=== PATIENT | female | born 1985 | race Caucasian/White ===

== ENCOUNTER 2019-11-19 11:13 | Observation (INO) | payer BC, MEDICAID, SELFPAY ==
--- NOTE | ~2019-11-19 | US_ITS ---
US OB limited DATE: 11/19/2019 12:36 INDICATION: Vaginal bleeding. Check placenta. TECHNIQUE: Real-time imaging and Doppler analysis COMPARISON: None FINDINGS: Live reilly intrauterine gestation, fetus in vertex presentation, longitudinal lie. Feta l heart rate of 161 bpm. Anterior placenta, lower margin almost 4 cm above the internal os. No retroplacental hemorrhage is ev ident. Normal amount of amniotic fluid by subjective assessment. IMPRESSION: No significant abnormality Reviewed, dictated and finalized at Location [facility]. Reviewed, dictated and finalized at location B. IMPRESSION: No significant abnormality
[2019-11-19 11:29] VITALS: BMI 29.4
[2019-11-19 12:05] VITALS: BP 129/74; PULSE 78; TEMP 36.6
--- NOTE | 2019-11-19 12:49 | OBADM ---
This patient, Carrie Palmer, admitted to the OB room OB Post 116 for observation. Patient/family oriented to hospital policies and general routines including ID bracelet, bed and alarms, visiting hours, pain management, procedures, bathroom and other care routines, personal items, smoking policy, room service/diet, and visiting hours. Patient/Family are encouraged to report perceived risks to care and to ask questions if they do not understand what they are told or what they should do.
--- NOTE | 2019-11-22 08:37 | PM.OBTRLD ---
OB - Triage/Final Diagnosis Visit Information Comments/Additional reasons for admission: cramping
== END 2019-11-19 13:05 | disposition home or self-care (01) ==
PROVIDERS: Admitting Provider Obstetrics & Gynecology Gynecology; PCP Family Medicine; Visit Provider Obstetrics & Gynecology Gynecology
DX: O26.892 Other specified pregnancy related conditions, second trimester (principal); R10.9 Unspecified abdominal pain; Z3A.18 18 weeks gestation of pregnancy
CPT/HCPCS: 76815; G0378; G0379

== ENCOUNTER 2020-03-15 10:28 | Outpatient (CLI) | payer MEDICAID, SELFPAY ==
--- NOTE | ~2020-03-15 | US_ITS ---
EXAMINATION: US OB follow up DATE: 03/15/2020 14:32 INDICATION: Size less than dates. Third trimester. TECHNIQUE: Real-time ultrasound of the pelvis was performed. COMPARISON: Ultrasound 11/19/19 FINDINGS: There is a single living fetus in vertex presentation. The placenta is anterior. heart rate is 134 beats per minute (bpm). The amniotic fluid index is 12.3 cm, which is normal. The following biometric data were obtained: Biparietal diameter (BPD): 8.5 cm; head circumference (HC): 33.2 cm; abdominal circumference (AC): 31 .3 cm; femur length (FL): 6.8 cm. These measurements are concordant. Estimated weight is 2635 g +/- 395 g, which correlates with 62nd percentile when 04/21/20 is used as estimated date of delivery. As single measurements, these parameters are each equal to the following estimated gestational ages: BPD: 34 weeks 2 days. HC: 37 weeks 6 days. AC: 35 weeks 1 days. FL: 34 weeks 6 days. estimated gestational age based solely on measurements from this exam is 35 weeks 4 days +/- 2 weeks 3 days. IMPRESSION: 1. Single living fetus in vertex presentation. 2. Estimated weight is 2635 g +/- 395 g, which correlates with 62nd percentile when 04/21/20 is used as estimated date of delivery. Reviewed, dictated and finalized at location A. RANCE AUDITOR IMPRESSION: 1. Single living fetus in vertex presentation. 2. Estimated weight is 2635 g +/- 395 g, which correlates with 62nd perc entile when 04/21/20 is used as estimated date of delivery.
== END 2020-03-15 10:29 | disposition home or self-care (01) ==
LOC: ANHIMG 10:33
PROVIDERS: PCP Family Medicine; Visit Provider Obstetrics & Gynecology Gynecology
DX: O36.5933 Maternal care for other known or suspected poor fetal growth, third trimester, fetus 3 (principal); Z3A.35 35 weeks gestation of pregnancy
CPT/HCPCS: 76816

== ENCOUNTER 2020-04-01 10:06 | Outpatient (RCR) | payer OTHER, SELFPAY | END 2020-04-16 07:37 | disposition home or self-care (01) | LOC: ANHOBOP 10:06 | PROVIDERS: PCP Family Medicine; Visit Provider Obstetrics & Gynecology | DX: O36.8130 Decreased fetal movements, third trimester, not applicable or unspecified (principal); Z3A.40 40 weeks gestation of pregnancy | CPT/HCPCS: 59025 ==

== ENCOUNTER 2020-04-14 06:35 | Inpatient (IN) | payer OTHER, SELFPAY ==
[2020-04-14] VITALS (165 sets, daily range): BP systolic 97–131; BP diastolic 47–86; PULSE 67–104; RESP 16; TEMP 36.1–36.9; O2SAT 98–100; BMI 29.4
[2020-04-14 07:09] LABS: Basophils Percent Auto 0.3 % (0.2-1.2); Eosinophils Absolute Auto 0.2 K/mm3 (0-0.3); Eosinophils Percent Auto 1.4 % (0-4.4); Hematocrit 32.2 % (37.0-47.0); Hemoglobin 11.3 g/dL (12.0-15.0); Immature Granulocyte Absolute 0.09 K/mm3 (0.00-0.031); Immature Granulocyte Percent A 0.6 % (0-0.5); Lymphocytes Absolute Auto 2.03 K/mm3 (0.9-3.2); Lymphocytes Percent Auto 14.4 % (18.3-44.2); Mean Corpuscular HGB Conc 35.1 g/dl (32-36); Mean Corpuscular Volume 91.2 fl (80-100); Monocytes Absolute Auto 1.5 K/mm3 (0.1-0.6); Monocytes Percent Auto 10.4 % (2.6-8.5); Neutrophils Absolute Auto 10.3 K/mm3 (1.3-6.7); Neutrophils Percent Auto 72.9 % (45.5-73.1); Platelet Count Result 260 k/mm3 (150-375); Red Blood Count 3.53 M/mm3 (4.2-5.4); Red Cell Distribution Width 13.7 % (11.5-14.5); White Blood Count 14.1 K/mm3 (4.5-10.0)
[2020-04-14 07:18] LABS: Anisocytosis 1+ (NORMAL); Platelet Estimate Adequate (Adequate)
[2020-04-14 07:19] LABS: Microcytosis 1+ (NORMAL)
[2020-04-14 07:21] LABS: Alanine Aminotransferase 19 U/L (4-35); Albumin Level 3.6 g/dL (3.5-5.1); Alkaline Phosphatase 193 U/L (38-126); Anion Gap 6 mmol/L (8-16); Aspartate Amino Transferase 20 U/L (14-36); Bilirubin,Total 0.6 mg/dL (0.2-1.3); Blood Urea Nitrogen 8 mg/dL (7-17); Carbon Dioxide 19 mmol/L (22-30); Chloride 108 mmol/L (98-107); Estimated Glomerular Filt Rate > 60; Glucose 86 mg/dL (65-105); Potassium 3.6 mmol/L (3.4-5.0); Sodium 133 mmol/L (137-145)
[2020-04-14] MEDS: LACTATED RINGERS 1,000 ML 125 ML IV CONT ×2 (07:43→17:58)
[2020-04-14] MEDS: OXYTOCIN 30 UNITS/NS 500 ML 30 UNITS/500 ML BAG IV CONT (07:44)
--- NOTE | 2020-04-14 07:44 | WPDOBADMIT ---
Obstetrics - Admit Note Admission Note: record reviewed. No pertinent additions to the history and/or any subsequent changes in the physical findings that are not consistent with the expected course of the were found. Additions to the history and/or subsequent changes in the physical findings follow. None. Here for MIL. Cervix /-2 AROM with clear. FHTs reactive.
--- NOTE | 2020-04-14 08:07 | WPDANESEPP ---
Anes - Eval Pre Procedure Procedure: labor epidural Date/Time: 04/14/20 08:07 Surgeon: Carlos Alberto Pre Op Diagnosis: IOL Patient Data Age: 34 Gender: F Height: Weight: Last Vital Signs Temp 36.1 C L 04/14/20 07:00 Pulse 76 04/14/20 08:00 BP 118/73 04/14/20 08:00 Pulse Ox 99 04/14/20 07:05 Allergies Allergy/AdvReac Type Severity Reaction Status Date / Time Sulfa (Sulfonamide Allergy Hives Verified 04/14/20 07:47 Antibiotics) Home Medications Medication Instructions Recorded Confirmed Type PNV cmb#95-ferrous fumarate-FA 1 tablet PO DAILY 03/23/20 04/14/20 History [] ergocalciferol (vitamin D2) 1,250 mcg PO WEEKLY 03/23/20 04/14/20 History [Vitamin D2] Laboratory Tests 04/14/20 04/14/20 04/14/20 07:02 07:02 07:02 WBC 14.1 K/mm3 H K/mm3 (4.5-10.0) RBC 3.53 M/mm3 L M/mm3 (4.2-5.4) Hgb 11.3 g/dL L g/dL (12.0-15.0) Hct 32.2 % L % (37.0-47.0) MCV 91.2 fl fl (80-100) MCH 32.0 pg pg (26-34) MCHC 35.1 g/dl g/dl (32-36) RDW 13.7 % % (11.5-14.5) Plt Count 260 k/mm3 k/mm3 (150-375) MPV 11.0 fl H fl (7.4-10.4) Immature Gran % (Auto) 0.6 % H % (0-0.5) Neut % (Auto) 72.9 % % (45.5-73.1) Lymph % (Auto) 14.4 % L % (18.3-44.2) [place] % (Auto) 10.4 % H % (2.6-8.5) Eos % (Auto) 1.4 % % (0-4.4) Baso % (Auto) 0.3 % % (0.2-1.2) Lymph # (Auto) 2.03 K/mm3 K/mm3 (0.9-3.2) [place] # (Auto) 1.5 K/mm3 H K/mm3 (0.1-0.6) Eos # (Auto) 0.2 K/mm3 K/mm3 (0-0.3) Baso # (Auto) 0.0 K/mm3 K/mm3 (0.0-0.1) Abs Immat Gran (auto) 0.09 K/mm3 H K/mm3 (0.00-0.031) Absolute Neuts (auto) 10.3 K/mm3 H K/mm3 (1.3-6.7) Absolute Nucleated RBC 0.0 K/mm3 K/mm3 (0.0-0.012) Nucleated RBC % 0.0 % % (0.0-0.2) Platelet Estimate Adequate (Adequate) Anisocytosis 1+ (NORMAL) Microcytosis 1+ (NORMAL) Sodium 133 mmol/L L mmol/L (137-145) Potassium 3.6 mmol/L mmol/L (3.4-5.0) Chloride 108 mmol/L H mmol/L (98-107) Carbon Dioxide 19 mmol/L L mmol/L (22-30) Anion Gap 6 mmol/L L mmol/L (8-16) BUN 8 mg/dL mg/dL (7-17) Creatinine 0.50 mg/dL L mg/dL (0.7-1.0) Estim Creat Clear Calc Not Reportable Estimated GFR > 60 (59 - ) Glucose 86 mg/dL mg/dL (65-105) Calcium 9.0 mg/dL mg/dL (8.4-10.2) Total Bilirubin 0.6 mg/dL mg/dL (0.2-1.3) AST 20 U/L U/L (14-36) ALT 19 U/L U/L (4-35) Alkaline Phosphatase 193 U/L H U/L (38-126) Total Protein 7.0 g/dL g/dL (6.3-8.2) Albumin 3.6 g/dL g/dL (3.5-5.1) RPR Pending Patient hx anesthesia problems: none Family hx anesthesia problems: none [facility] Family History Family History Other No pertinent family history Social History Social History Smoking packs per day: 1 Smoking cigarettes per day: 20.0 Smoking status: Current every day smoker Second hand tobacco smoke exposure: Yes Substance use: never Gender identity (if verbalized by the patient): Female Spiritual care concerns: No Comments past h/o HTN Exam Day of Procedure 04/14/20 08:07 Patient weight: obese Heart: regular rate and rhythm Lungs: normal air movement Airway: Mallampati scale class II Neurological: alert and oriented
--- NOTE | 2020-04-14 08:16 | LDADM ---
This patient, Carrie Palmer, was admitted to Labor/Delivery/Recovery 105 on 04/14/20 at 06:35. Plans for labor, pain management and were discussed with patient. Patient/family oriented to hospital policies and general routines including ID bracelet, bed and alarms, visiting hours, pain management, procedures, bathroom and other care routines, personal items, smoking policy, room service/diet and guest tray routines, infant security routines, call light, and visiting hours. Patient/Family are encouraged to report perceived risks to care and to ask questions if they do not understand what they are told or what they should do. See OBIX for further documentation.
[2020-04-14 10:49] LABS: Rapid Plasma Reagin Non-Reactive (NonReactive)
--- NOTE | 2020-04-14 18:52 | PM.OBPRVD ---
OB - Delivery Note Procedure Delivery date: 04/14/20 Procedure: events: Labor Induction Intrapartal events: None Induction method: AROM and per pitocin protocol Delivery monitor: external FHT and external uterine Route of delivery: Laceration Description: Vaginal - 1st Degree Delivery repair: vicryl (3-0 vicryl) Specimen: No Quantitative Blood Loss (ml): 100 Anesthesia type: Epidural Disposition: floor [place] Baby Date of : 04/14/20 Weeks of gestation at delivery: 39 Infant gender: Male Weight (pounds): 6 Weight (ounces): 15 presentation: vertex position: Left Occiput Anterior Placenta delivery description: Spontaneous cord vessel description: 3 Vessels and Nuchal Cord score one minute: 8 score five minutes: 9
--- NOTE | 2020-04-14 18:53 | PM.OBDSVD ---
DS: Admitting Diagnosis Admitting Diagnosis Admitting Diagnosis: IUP 39 wk MIL DS: Discharge Diagnosis Discharge Diagnosis (1) (normal spontaneous vaginal delivery): Code(s): O80 - Encounter for full-term uncomplicated delivery Status: Acute (2) 39 weeks gestation of : Code(s): Z3A.39 - 39 weeks gestation of Status: Acute OB - DS: Summary OB Procedures : Ultrasound OB Procedures Intrapartum: Spontaneous Vag Delivery OB Procedures: : None Peripartum Data Delivery Method: Natural Vaginal Laceration Description: Vaginal - 1st Degree complications: none Status at Discharge Functional status at discharge: independent ambulation Overall status at discharge: patient is progressing back to baseline Time Spent with Patient Time attestation: Total time spent providing and/or coordinating discharge services: DS: Data Data Completed and Pending Labs on day of discharge: Labs from last 24 hours 04/14/20 04/14/20 04/14/20 07:02 07:02 07:02 WBC RBC Hgb Hct MCV MCH MCHC RDW Plt Count MPV Immature Gran % (Auto) Neut % (Auto) Lymph % (Auto) [place] % (Auto) Eos % (Auto) Baso % (Auto) Lymph # (Auto) [place] # (Auto) Eos # (Auto) Baso # (Auto) Abs Immat Gran (auto) Absolute Neuts (auto) Absolute Nucleated RBC Nucleated RBC % Platelet Estimate Anisocytosis Microcytosis Sodium 133 L Potassium 3.6 Chloride 108 H Carbon Dioxide 19 L Anion Gap 6 L BUN 8 Creatinine 0.50 L Estim Creat Clear Calc Not Reportable Estimated GFR > 60 Glucose 86 Calcium 9.0 Total Bilirubin 0.6 AST 20 ALT 19 Alkaline Phosphatase 193 H Total Protein 7.0 Albumin 3.6 RPR Non-reactive Blood Type O Positive Antibody Screen Negative 04/14/20 07:02 WBC 14.1 H RBC 3.53 L Hgb 11.3 L Hct 32.2 L MCV 91.2 MCH 32.0 MCHC 35.1 RDW 13.7 Plt Count 260 MPV 11.0 H Immature Gran % (Auto) 0.6 H Neut % (Auto) 72.9 Lymph % (Auto) 14.4 L [place] % (Auto) 10.4 H Eos % (Auto) 1.4 Baso % (Auto) 0.3 Lymph # (Auto) 2.03 [place] # (Auto) 1.5 H Eos # (Auto) 0.2 Baso # (Auto) 0.0 Abs Immat Gran (auto) 0.09 H Absolute Neuts (auto) 10.3 H Absolute Nucleated RBC 0.0 Nucleated RBC % 0.0 Platelet Estimate Adequate Anisocytosis 1+ Microcytosis 1+ Sodium Potassium Chloride Carbon Dioxide Anion Gap BUN Creatinine Estim Creat Clear Calc Estimated GFR Glucose Calcium Total Bilirubin AST ALT Alkaline Phosphatase Total Protein Albumin RPR Blood Type Antibody Screen Discharge Plan Discharge Attending physician on discharge: Connie Carcamo Discharging Clinician: Connie Carcamo Anticipated Discharge Date/Time: 04/16/20 18:54 Patient Disposition: Home, Self-Care Activity: may shower and pelvic rest Diet: regular Patient Instructions: Antibiotic Form, How to Stop Smoking (DC) Stand Alone Forms: General Discharge Information Follow-up/Referrals: Connie Carcamo MD [Physician] - 6 Weeks Discharge Medications: Continued ergocalciferol (vitamin D2) [Vitamin D2] 1,250 mcg (50,000 unit) Capsule 1,250 mcg PO WEEKLY RF: 0 PNV cmb#95-ferrous fumarate-FA [] 28 mg iron- 800 mcg Tablet 1 tablet PO DAILY RF: 0 Date of admission: 04/14/20 06:35 Primary Care Provider: Jaden Espinal Admitting Provider: Connie Carcamo Attending physician on admission: Connie Carcamo Condition: Stable Care Plan Goals: Plans condoms until Mirena
[2020-04-14] MEDS: OXYTOCIN 30 UNITS/NS 500 ML 30 UNITS/500 ML BAG 125 UNITS IV CONT (19:10)
[2020-04-14] MEDS: IBUPROFEN 600 MG TABLET PO (20:17)
[2020-04-14] MEDS: BENZOCAINE 20% AER SPR (*SP) 56 GM CAN 1 SPRAY TOPICAL (20:17)
[2020-04-14] MEDS: WITCH HAZEL 40 PADS 1 PAD TOPICAL (20:17)
--- NOTE | 2020-04-15 06:32 | PM.OBPNVD ---
OB - PN: Subj Subjective Date/time seen: 04/15/20 06:32 Patient comments: no complaints and pain well controlled baby status: doing well OB - PN: Obj Data Labs CBC & Chem 7: 04/15/20 04:15 04/14/20 07:02 Labs: Laboratory Results - last 24 hr 04/14/20 04/14/20 04/14/20 07:02 07:02 07:02 WBC 14.1 H RBC 3.53 L Hgb 11.3 L Hct 32.2 L MCV 91.2 MCH 32.0 MCHC 35.1 RDW 13.7 Plt Count 260 MPV 11.0 H Immature Gran % (Auto) 0.6 H Neut % (Auto) 72.9 Lymph % (Auto) 14.4 L [place] % (Auto) 10.4 H Eos % (Auto) 1.4 Baso % (Auto) 0.3 Lymph # (Auto) 2.03 [place] # (Auto) 1.5 H Eos # (Auto) 0.2 Baso # (Auto) 0.0 Abs Immat Gran (auto) 0.09 H Absolute Neuts (auto) 10.3 H Absolute Nucleated RBC 0.0 Nucleated RBC % 0.0 Platelet Estimate Adequate Anisocytosis 1+ Microcytosis 1+ Sodium Potassium Chloride Carbon Dioxide Anion Gap BUN Creatinine Estim Creat Clear Calc Estimated GFR Glucose Calcium Total Bilirubin AST ALT Alkaline Phosphatase Total Protein Albumin RPR Non-reactive Blood Type O Positive Antibody Screen Negative 04/14/20 04/15/20 07:02 04:15 WBC RBC Hgb 10.0 L Hct 29.0 L MCV MCH MCHC RDW Plt Count MPV Immature Gran % (Auto) Neut % (Auto) Lymph % (Auto) [place] % (Auto) Eos % (Auto) Baso % (Auto) Lymph # (Auto) [place] # (Auto) Eos # (Auto) Baso # (Auto) Abs Immat Gran (auto) Absolute Neuts (auto) Absolute Nucleated RBC Nucleated RBC % Platelet Estimate Anisocytosis Microcytosis Sodium 133 L Potassium 3.6 Chloride 108 H Carbon Dioxide 19 L Anion Gap 6 L BUN 8 Creatinine 0.50 L Estim Creat Clear Calc Not Reportable Estimated GFR > 60 Glucose 86 Calcium 9.0 Total Bilirubin 0.6 AST 20 ALT 19 Alkaline Phosphatase 193 H Total Protein 7.0 Albumin 3.6 RPR Blood Type Antibody Screen OB - PN A/P Plan day: 1 Plan: routine care Time Spent With Patient Time: Total time spent is greater than 50% in coordination of care (as documented) at patient's floor/unit and/or counseling patient: Exam : Bimanual exam- vagina & uterus: other (Uterus firm, nt @U)
[2020-04-15 08:40] VITALS: BP 113/71; PULSE 79; RESP 18; TEMP 36.8; O2SAT 99
--- NOTE | 2020-04-15 08:53 | WPDANLDPN2 ---
Anes-Prog Note L&D Date/Time: 04/15/20 08:53 Comfortable throughout: labor and delivery Neuraxial method: epidural Epidural/Spinal procedure site: clean & non-tender Neuro status: Neuro function grossly intact. Cardiovascular status: normal Respiratory status: normal Airway patency: baseline Mental status: baseline Post-Op hydration status: normal Vital Signs: Last Vital Signs Temp 97.9 F 04/14/20 21:15 Pulse 95 04/14/20 21:15 Resp 16 04/14/20 21:15 BP 122/70 04/14/20 21:15 Pulse Ox 100 04/14/20 18:24 Pain score (VAS): 0/10 I/O: Intake & Output 04/14/20 04/15/20 04/15/20 23:59 07:59 15:59 Intake Total 700 Balance 700 Post-procedural complaints: none Patient feedback: Patient satisfied with anesthetic care.
[2020-04-15] MEDS: DOCUSATE SODIUM 100 MG CAPSULE PO (09:26)
[2020-04-15] MEDS: IBUPROFEN 600 MG TABLET PO (09:26)
[2020-04-15 09:35] VITALS: PULSE 79; RESP 18; O2SAT 99
[2020-04-15 20:15] VITALS: BP 113/71; PULSE 77; RESP 16; TEMP 36.6
--- NOTE | 2020-04-16 07:44 | PM.OBPNVD ---
OB - PN: Subj Subjective Date/time seen: 04/16/20 07:44 Patient comments: no complaints and pain well controlled baby status: doing well and bottle feeding well OB - PN: Obj Data Labs CBC & Chem 7: 04/15/20 04:15 04/14/20 07:02 OB - PN A/P Plan day: 2 Plan: routine care, discharge home, follow up 6 weeks and other (plans condoms until Mirena) Time Spent With Patient Time: Total time spent is greater than 50% in coordination of care (as documented) at patient's floor/unit and/or counseling patient: Exam : Bimanual exam- vagina & uterus: other (Uterus firm, nt @U)
[2020-04-16 08:42] VITALS: PULSE 77; RESP 16; O2SAT 99
[2020-04-16 08:50] VITALS: BP 120/78; PULSE 88; RESP 16; TEMP 37.1; O2SAT 99
--- NOTE | 2020-04-16 09:32 | WPDANLDPN2 ---
Anes-Prog Note L&D Date/Time: 04/16/20 09:32 Comfortable throughout: labor and delivery Neuraxial method: epidural Epidural/Spinal procedure site: clean & non-tender Neuro status: Neuro function grossly intact. Cardiovascular status: normal Respiratory status: normal Airway patency: baseline Mental status: baseline Post-Op hydration status: normal Vital Signs: Last Vital Signs Temp 36.6 C 04/15/20 20:15 Pulse 77 04/16/20 08:42 Resp 16 04/16/20 08:42 BP 113/71 04/15/20 20:15 Pulse Ox 99 04/16/20 08:42 Pain score (VAS): 0 Post-procedural complaints: none Patient feedback: Patient satisfied with anesthetic care.
[2020-04-18 13:42] VITALS: BP 118/77; PULSE 79; RESP 16; TEMP 36.9; O2SAT 99
== END 2020-04-16 10:15 | disposition home or self-care (01) | DRG 560 ==
LOC: ANHLDR 18:56 → ANHOB2 21:11
PROVIDERS: Admitting Provider Obstetrics & Gynecology Gynecology; PCP Family Medicine; Visit Provider Obstetrics & Gynecology Gynecology
DX: O13.4 Gestational [pregnancy-induced] hypertension without significant proteinuria, complicating childbirth (principal); Z37.0 Single live birth; Z3A.39 39 weeks gestation of pregnancy; O70.0 First degree perineal laceration during delivery; O69.81X0 Labor and delivery complicated by cord around neck, without compression, not applicable or unspecified; O99.334 Smoking (tobacco) complicating childbirth; F17.210 Nicotine dependence, cigarettes, uncomplicated; O99.344 Other mental disorders complicating childbirth; F41.8 Other specified anxiety disorders
CPT/HCPCS: 36415; 80053; 85014; 85018; 85025; 86592; 86850; 86900; 86901; A9270; J2590; J2795; J7120

== ENCOUNTER 2023-11-28 10:29 | Outpatient (CLI) | payer OTHER, SELFPAY ==
--- NOTE | ~2023-11-28 | US_ITS ---
EXAMINATION: US soft tissue UE RT DATE: 11/28/2023 11:02 INDICATION: Right wrist lump. TECHNIQUE: Multiple grayscale and Doppler ultrasound images of the right upper limb were obtained. COMPARISON: None FINDINGS: There is thrombus in a right radial vein in the patient's area of concern. IMPRESSION: 1. Thrombus in a right radial vein in the patient's area of concern. Reviewed, dictated and finalized at location A.
== END 2023-11-28 10:30 | disposition home or self-care (01) ==
LOC: CHSIMG 10:30
PROVIDERS: PCP Family Medicine; Visit Provider Nurse Practitioner Family
DX: R22.31 Localized swelling, mass and lump, right upper limb (principal); I82.621 Acute embolism and thrombosis of deep veins of right upper extremity
CPT/HCPCS: 76882

== ENCOUNTER 2023-11-30 14:13 | Outpatient (CLI) | payer OTHER, SELFPAY | END 2023-11-30 14:14 | disposition home or self-care (01) | LOC: CHSIMG 14:15 | PROVIDERS: PCP Family Medicine; Visit Provider Nurse Practitioner Family | DX: I82.611 Acute embolism and thrombosis of superficial veins of right upper extremity (principal) | CPT/HCPCS: 99199 ==

== ENCOUNTER 2023-12-01 07:07 | Outpatient (CLI) | payer OTHER, SELFPAY ==
--- NOTE | ~2023-12-01 | US_ITS ---
EXAMINATION: US venous doppler UE RT DATE: 12/01/2023 07:45 INDICATION: Superficial venous thrombosis of the arm, right. TECHNIQUE: Grayscale ultrasound images without and with compression and Doppler ultrasound images of the right upper extremity veins were obtained. COMPARISON: Ultrasound 11/28/2023 FINDINGS: The visualized portions of the right internal jugular vein, subclavian vein, axillary vein, brachial veins, basilic vein, cephalic vein, and ulnar vein are patent. Again seen is thrombus in right radial vein. IMPRESSION: 1. Deep vein thrombosis involving right radial vein. Reviewed, dictated and finalized at location A.
== END 2023-12-01 07:08 | disposition home or self-care (01) ==
LOC: CHSIMG 07:11
PROVIDERS: PCP Family Medicine; Visit Provider Nurse Practitioner Family
DX: I82.611 Acute embolism and thrombosis of superficial veins of right upper extremity (principal); I82.621 Acute embolism and thrombosis of deep veins of right upper extremity
CPT/HCPCS: 93971

== ENCOUNTER 2024-03-12 14:54 | Outpatient (CLI) | payer OTHER, SELFPAY ==
--- NOTE | ~2024-03-12 | US_ITS ---
EXAMINATION: US venous doppler UE RT DATE: 03/12/2024 15:27 INDICATION: Follow-up radial vein thrombus TECHNIQUE: Harris scale images with and without compression and Doppler images of the right upper extre mity veins were obtained. COMPARISON: None. FINDINGS: The right internal jugular vein, subclavian vein, axillary vein, brachial veins, basilic vein, cephal ic vein, radial vein, and ulnar vein are patent. IMPRESSION: 1. Patent right upper extremity veins. No evidence of deep venous thrombosis. Reviewed, dictated and finalized at location B. ES SUPERVISOR
== END 2024-03-12 14:55 | disposition home or self-care (01) ==
PROVIDERS: PCP Family Medicine; Visit Provider Internal Medicine Hematology
DX: I82.621 Acute embolism and thrombosis of deep veins of right upper extremity (principal)
CPT/HCPCS: 93971

== ENCOUNTER 2024-04-16 12:52 | Outpatient (CLI) | payer OTHER, SELFPAY ==
--- NOTE | ~2024-04-16 | US_ITS ---
EXAMINATION: US thyroid DATE: 04/16/2024 13:11 INDICATION: Abnormal imaging TECHNIQUE: Multiple ultrasound images of the thyroid were obtained assessing grayscale appearance and color Doppler flow. COMPARISON: None. FINDINGS: The right thyroid lobe measures 4.6 x 1.3 x 1.6 cm. Within the lower pole of the right lobe of the thyroid gland is a 16 x 12 x 10 mm nodule: Composition -mixed cystic and solid (1) Echogenicity -hyperechoic and isoechoic (1) Shape - wider than tall Margin - smooth Echogenic foci - none. = TR2 not suspicious. The left thyroid lobe measures 4.9 x 1.5 x 1.5 cm. Within the upper pole of the left lobe of the thyroid gland is a 10 x 8 x 5.3 mm nodule. Composition -cystic or almost completely cystic (0) Echogenicity - hyperechoic and isoechoic (1) Shape - wider than tall Margin - smooth Echogenic foci - none. = TR 1 benign The isthmus measures 0.98cm in anterior to posterior dimension. Within the isthmus, to the right of midline is an additional nodule measuring 18 x 11 mm. Composition -spongiform (0) Echogenicity -anechoic (0) Shape - wider than tall Margin - smooth Echogenic foci -punctate echogenic foci (3) = TR 3 mildly suspicious Greater than 1.5 cm follow-up Greater than 2.5 cm FNA There is normal echotexture and echogenicity throughout the remainder of the thyroid gland. No additi onal discrete nodules identified. Normal vascular flow is present. IMPRESSION: TR3 nodule in the isthmus measuring 18 mm in greatest dimension. This nodule is mildly suspicious and follow-up is recommended (no FNA) Repeat ultrasound examination in one year is recommended Reviewed, dictated and finalized at location A. DOWN ATTENDANT
== END 2024-04-16 12:53 | disposition home or self-care (01) ==
LOC: CHSIMG 12:53
PROVIDERS: PCP Family Medicine; Visit Provider Family Medicine
DX: E04.1 Nontoxic single thyroid nodule (principal)
CPT/HCPCS: 76536